=== PATIENT | female | born 1965 | race African-American/Black ===

== ENCOUNTER → 2017-06-28 | Outpatient (CLI) | payer OTHER ==
--- NOTE | 2017-06-28 10:30 | WOMENS IMAGING REPORT ---
EXAM DESCRIPTION: BONE DENSITY HIP/SPINE COMPLETED DATE/TIME: 06/28/2017 8:57 am REASON FOR STUDY: AGE-RELATED OSTEOPROSIS; M81.0 M81.0 AGE-RELATED OSTEOPOROSIS W/O CURRENT PATHOLO GICAL FRAC COMPARISON: None. TECHNIQUE: Dual-Energy X-ray Absorptiometry (DEXA) of the AP Spine and Hip. LIMITATIONS: None. FINDINGS: LUMBAR SPINE: The bone mineral density (BMD) measured from L1-L4 in the AP projection correlates with a T-score of 0.8, which is normal as defined by the World Health Organization. HIP: The bone mineral density (BMD) measured in the left hip correlates with a T-score of 0.3, which is no rmal as defined by the World Health Organization. IMPRESSION: 1. LUMBAR SPINE: NORMAL. 2. HIP: NORMAL. COMMENT: The World Health Organization defines low BMD as follows: T-score: Normal: Greater than -1.0 Osteopenia: Between -1.0 and -2.5 Osteoporosis: Less than -2.5 without fractures Established osteoporosis: Less than -2.5 with fractures In general, you may wish to consider: Diagnosis Treatment Follow-up DEXA Normal BMD Prevention 2-3 years Osteopenia Prevention/Therapy 1-2 years Osteoporosis Therapy Yearly TECHNICAL DOCUMENTATION: JOB ID: [id number] [employer]- All Rights Reserved Reading location - IP/workstation name: [email or web address]
== END ==
LOC: WI 08:41
PROVIDERS: ATTEND Internal Medicine
DX: M81.0 Age-related osteoporosis without current pathological fracture (principal)
CPT/HCPCS: 77080

== ENCOUNTER 2020-02-24 05:50 | Day surgery (SDC) | payer OTHER ==
[~2020-02-24 05:50] MED LIST: CEFAZOLIN 1 GM/D5W RTU 1 GM/50 ML RTUPB IV PRN
[2020-02-24] MEDS ORDERED: DEXAMETHASONE SOD PHOSPHATE INJ 4 MG/1 ML VIAL ONE (06:51)
[2020-02-24] MEDS ORDERED: MIDAZOLAM 2 MG/2 ML INJ ONE (06:51)
[2020-02-24] MEDS ORDERED: ONDANSETRON HCL INJ/PF 4 MG/2 ML SDV ONE (06:51)
[2020-02-24] MEDS ORDERED: FENTANYL CITRATE INJ/PF 100 MCG/2 ML AMPUL ONE (06:51)
[2020-02-24] MEDS ORDERED: PROPOFOL INJ 200 MG/20 ML VIAL IV ONE (06:52)
[2020-02-24] MEDS ORDERED: CEFAZOLIN 1 GM/D5W RTU 1 GM/50 ML RTUPB IV ONE (07:34)
--- NOTE | 2020-02-24 07:50 | RADIOLOGY REPORT (SQ) ---
EXAM DESCRIPTION: X-ray single view chest. CLINICAL HISTORY: 54 years Female, PRE OP for insertion of a Pleurx catheter COMPARISON: None. TECHNIQUE: Single portable x-ray view of the chest performed on 02/24/2020 at 6:31 AM FINDINGS: Lungs are well-expanded. There is bibasilar volume loss and there is patchy airspace opacities bilaterally. Findings are concerning for multifocal pneumonia and bilateral effusions. There is no evidence of a pneumothorax. The cardiac silhouette is normal in size and configuration. The mediastinal contours are normal. No acute osseous abnormality is identified. No focal soft tissue abnormalities are seen. Lines and tubes: None. IMPRESSION: Bibasilar volume loss with patchy airspace opacities bilaterally concerning for multifocal pneumonia with bilateral effusions.
[2020-02-24] MEDS ORDERED: OXYCODONE-ACETAMINOPHEN 5-325 MG TABLET PO PRN (11:10)
--- NOTE | 2020-02-24 11:10 | Discharge Summary ---
Discharge Summary (SDC) - Discharge Final Diagnosis: Malignant right pleural effusion Date of Surgery: 02/24/20 Discharge Date: 02/24/20 Condition: Good Treatment or Instructions: WOUND CARE: Okay to shower in 48 hours, removing bandaid but leave pleurex dressing intact, avoid getting dressing wet. Do not remove chest tube dressing until seen by home health. PAIN MANAGEMENT: You may take Toradol 10mg one pill by mouth every six hours as needed for pain. Do not take additional NSAIDs with medication. You may take Tylenol as needed. FOLLOW UP: You may follow up at [facility] in one week. Call clinic with any questions/concerns. Prescriptions: Ketorolac Tromethamine [Toradol 10 mg Tablet] 10 mg PO Q6HP PRN #20 tablet PRN Reason: Referrals: JAN REDDING MD [Primary Care Provider] - Discharge Diet: As Tolerated Report the Following to Your Physician Immediately: Increase in Pain, Fever over 101 Degrees
--- NOTE | 2020-02-24 11:26 | Operative Report ---
Operative Report DATE OF SURGERY: 02/24/20 PREOPERATIVE DIAGNOSIS: 1. Metastatic breast cancer. 2. Right pleural effusi on POSTOPERATIVE DIAGNOSIS: Same OPERATION: 1. Right thoracic PleurX catheter insertion. 2. Right thoracentesis SURGEON: LUIS LARES [employer]ER: MARKUS INIGUEZ ANESTHESIA: LMAC TISSUE REMOVED OR ALTERED: 1500 cc malignant right pleural effusion COMPLICATIONS: None ESTIMATED BLOOD LOSS: Scant INTRAOPERATIVE FINDINGS: See below PROCEDURE: Patient was taken the preop holding her to the main operating room where LMAC anesthesia was induced. She was placed in left lateral cubitus position. Right anterior, lateral and posterior chest wall prepped and draped in sterile fashion. Surgical plan and surgical timeout were conducted. At the site of previous thoracentesis, and the posterior axillary line, the skin was anesthetized 1% plain lidocaine. At approximately ICS 9-time, vision was made with a 15 blade, and a 14-gauge needle and wire were threaded into the right pleural space. A suitable site felt appropriate for exit of the Pleurx catheter was identified in the mid axillary line. The skin was anesthetized 1% plain lidocaine. Opening made the skin with a 15 blade, Pleurx catheter tunnel between the 2 incisions. Small then medium dilators threaded over the wire, then the medium sized dilator with strip away sheath threaded into position. The dilator and wire removed, and catheter threaded into the right chest. Strip away sheath removed, leaving the catheter in good position. The catheter was hooked to the proprietary drainage chamber, and approximately 1500 cc was drained from the right chest. Wounds closed with 3-0 Vicryl, 2-0 silk, Biopatch sterile dressings applied. Patient tolerated procedure well. She was placed in the supine position, taken to the recovery room in stable condition. There the drainage receptacle was disconnected from the Pleurx catheter and the Pleurx catheter capped off. Portable upright chest x-ray pending at time of dictation.
[2020-02-24] MEDS ORDERED: OXYCODONE-ACETAMINOPHEN 5-325 MG TABLET ONE (11:58)
[2020-02-24 20:06] VITALS: BP 98/52
== END 2020-02-24 14:23 | disposition home or self-care (01) ==
LOC: OROUT 05:50
PROVIDERS: ATTEND Surgery
DX: C78.2 Secondary malignant neoplasm of pleura (principal); J91.0 Malignant pleural effusion; C50.919 Malignant neoplasm of unspecified site of unspecified female breast; C79.89 Secondary malignant neoplasm of other specified sites; Z20.828 Contact with and (suspected) exposure to other viral communicable diseases; E11.9 Type 2 diabetes mellitus without complications; I10 Essential (primary) hypertension; Z79.899 Other long term (current) drug therapy; Z79.84 Long term (current) use of oral hypoglycemic drugs; Z85.71 Personal history of Hodgkin lymphoma; Z90.11 Acquired absence of right breast and nipple; Z99.81 Dependence on supplemental oxygen
CPT/HCPCS: 32550; 82962; 0241U ×4; 71045; 00520; J2250; J0690; J1100; J3010; J2405; J2704; C9803; 520

== ENCOUNTER → 2020-02-29 | Outpatient (CLI) | payer OTHER ==
--- NOTE | 2020-02-29 13:36 | RADIOLOGY REPORT (SQ) ---
EXAM DESCRIPTION: NM WHOLE BODY BONE SCAN IMAGES COMPLETED DATE/TIME: 02/29/2020 12:33 pm REASON FOR STUDY: (C50.411)MALIG NEOPLM OF UPPER-OUTER QUADRANT OF RIGHT FEMALE BREAST C50.411 SELENA G NEOPLM OF UPPER-OUTER QUADRANT OF RIGHT FEMALE COMPARISON: Various imaging studies. RADIONUCLIDE AND DOSE: 20 millicuries Tc99m MDP. The route of agent administration: Intravenous. ADDITIONAL DRUGS AND DOSES: None. TECHNIQUE: Routine delayed images at 3 hours post radionuclide injection acquired of the bony skelet on including anterior and posterior whole-body projections and additional focused images as needed. LIMITATIONS: None. FINDINGS: BONES: There is uptake in 2 contiguous right lower ribs laterally. KIDNEYS: Symmetric excretion without obstruction. OTHER: No other significant finding. IMPRESSION: There is uptake in 2 contiguous right ribs. This could be secondary to prior trauma. I t could conceivably be secondary to prior radiation. The overall appearance of the scan does not sug gest metastatic disease to bone. COMMENT: Quality measure 147: Current bone scan is compared with any available plain radiographs, p rior bone scans, and CT/MRI. TECHNICAL DOCUMENTATION: JOB ID: [id number] [facility]- All Rights Reserved Reading location - IP/workstation name: [email or web address]
== END ==
LOC: RAD 08:46
PROVIDERS: ATTEND Internal Medicine
DX: C50.411 Malignant neoplasm of upper-outer quadrant of right female breast (principal)
CPT/HCPCS: 78306; A9503; Q9969